=== PATIENT | female | born 1955 | race Caucasian/White ===

== ENCOUNTER → 2017-05-06 16:04 | Outpatient (CLI) | payer BC, OTHER ==
[2013-03-22 10:50] VITALS: BMI 33.6
[~2017-05-06 16:04] MED LIST: ASMANEX0.24 GM INH; CELEXA10 MG PO; CRESTOR5 MG PO; TOVIAZ8 MG PO
== END | disposition home or self-care (01) ==
LOC: D.MAMMO 09:00
DX: Z12.31 Encounter for screening mammogram for malignant neoplasm of breast (principal)

== ENCOUNTER → 2018-05-26 20:26 | Outpatient (CLI) | payer BC ==
[2013-03-22 10:50] VITALS: BMI 33.6
== END | disposition home or self-care (01) ==
LOC: D.MAMMO 05-07 11:00
DX: Z12.31 Encounter for screening mammogram for malignant neoplasm of breast (principal)

== ENCOUNTER 2019-10-07 08:00 | Outpatient (CLI) | payer BC, OTHER ==
[2013-03-22 10:50] VITALS: BMI 33.6
== END 2019-10-07 23:59 | disposition home or self-care (01) ==
LOC: D.MAMMO 08:00
PROVIDERS: ATTEND Family Medicine
DX: Z12.31 Encounter for screening mammogram for malignant neoplasm of breast (principal)